=== PATIENT | female | born 1965 | race Caucasian/White ===

== ENCOUNTER 2024-02-16 10:12 | Day surgery (SDC) | payer OTHER, SELFPAY ==
[2024-02-16] MEDS: LACTATED RINGERS 1,000 ML 42 ML IV (10:20)
[2024-02-16 10:32] VITALS: BP 144/96; PULSE 91; RESP 16; TEMP 36.4; O2SAT 95
--- NOTE | 2024-02-16 10:52 | PM.HP.1 ---
History of Present Illness History of Present Illness Date Patient Seen: 02/16/24 Chief complaint: Colonoscopy Narrative: Second screening with last 7 years ago, mother with history of colon cancer PFS Surgical History (Updated 02/16/24 @ 10:28 by Crista Bates RN) Previous section Social History Smoking Status: Never smoker alcohol intake: never Meds Home Medications and Allergies Home Medications Medication Instructions Recorded Confirmed Type bupropion HCl 300 mg 24 hr tablet, 450 mg PO DAILY 02/16/24 02/16/24 History extended release buspirone 10 mg tablet PO 02/16/24 History fluoxetine 40 mg capsule PO 02/16/24 History ofloxacin 0.3 % ear drops drp EAR-LEFT 02/16/24 History olanzapine 2.5 mg tablet 5 mg PO ONCE PM 02/16/24 02/16/24 History Allergies Allergy/AdvReac Type Severity Reaction Status Date / Time No Known Drug Allergies Allergy Verified 02/16/24 10:28 Exam Vital Signs (past 8 hours): - 02/16/24 10:32 Temperature 97.5 F L Pulse Rate 91 H Respiratory Rate 16 Blood Pressure 144/96 H Pulse Oximetry 95 Oxygen Delivery Method Room Air Oxygen Delivery Method Room Air Narrative Exam Narrative: Oropharynx free of lesions Chest clear to auscultation percussion Cardiac exam reveals no S3 or murmur Assessment & Plan Assessment & Plan narrative: Colon cancer screening. Family history of colon cancer in mother. Colonoscopy to be performed. Risks, benefits, alternatives have been explained.
--- NOTE | 2024-02-16 10:54 | PM.OP.COLON ---
Operative Date/Time/Diagnoses Date of procedure: 02/16/24 Pre-op diagnosis: See indication and findings Procedure & Clinicians Study performed: Colonoscopy Indications: Screening and family history of colon cancer in her mother Surgeon: Blair Rodriguez Procedure Notes Procedure in detail: After informed consent was obtained the patient was placed in left lateral decubitus position. The scope was inserted into the rectum slowly advanced cecum. On slow withdrawal mucosa was carefully examined. Preparation was good. The scope was removed. The patient tolerated procedure well. Blood loss none Complications none Sedation mac Findings 1. Normal colonoscopy to cecum Patient should have follow-up colonoscopy in 5 years due to her family history of colon cancer in her mother
[2024-02-16 11:33] VITALS: BP 121/87; PULSE 85; RESP 19; TEMP 36.6; O2SAT 91
[2024-02-16 11:38] VITALS: BP 115/78; PULSE 85; RESP 15; O2SAT 93
[2024-02-16 11:43] VITALS: BP 108/77; PULSE 87; RESP 14; O2SAT 97
[2024-02-16 11:50] VITALS: BP 110/73; PULSE 87; RESP 12; TEMP 36.6; O2SAT 94
== END 2024-02-16 11:55 | disposition home or self-care (01) ==
PROVIDERS: PCP Family Medicine; Referring Provider Internal Medicine Gastroenterology; Visit Provider Internal Medicine Gastroenterology
PROC: 0DJD8ZZ Inspection of Lower Intestinal Tract, Via Natural or Artificial Opening Endoscopic (ICD-10-PCS; CPT 45378; principal; 2024-02-16 11:00)
DX: Z12.11 Encounter for screening for malignant neoplasm of colon (principal); Z80.0 Family history of malignant neoplasm of digestive organs
CPT/HCPCS: 45378; J2704